=== PATIENT | male | born 1945 | race Caucasian/White ===

== ENCOUNTER 2022-03-30 07:52 | Outpatient (CLI) | payer OTHER, SELFPAY | END 2022-03-30 07:53 | disposition home or self-care (01) | LOC: WOUND 07:52 | PROVIDERS: PCP Surgery; Visit Provider Nurse Practitioner Family | DX: S81.802A Unspecified open wound, left lower leg, initial encounter (principal); L08.9 Local infection of the skin and subcutaneous tissue, unspecified | CPT/HCPCS: 11042 ==

== ENCOUNTER 2022-04-13 08:11 | Outpatient (CLI) | payer OTHER, SELFPAY | END 2022-04-13 08:12 | disposition home or self-care (01) | LOC: WOUND 08:12 | PROVIDERS: PCP Surgery; Visit Provider Nurse Practitioner Family | DX: S81.802A Unspecified open wound, left lower leg, initial encounter (principal); L08.9 Local infection of the skin and subcutaneous tissue, unspecified | CPT/HCPCS: 11042 ==

== ENCOUNTER 2022-04-13 08:40 | Outpatient (CLI) | payer OTHER, SELFPAY | END 2022-04-13 08:41 | disposition home or self-care (01) | LOC: LAB 16:33 | PROVIDERS: PCP Surgery; Visit Provider Nurse Practitioner Family | DX: S81.002A Unspecified open wound, left knee, initial encounter (principal) | CPT/HCPCS: 87070; 87186 ==

== ENCOUNTER 2022-04-20 08:09 | Outpatient (CLI) | payer OTHER, SELFPAY | END 2022-04-20 08:10 | disposition home or self-care (01) | LOC: WOUND 08:09 | PROVIDERS: PCP Surgery; Visit Provider Nurse Practitioner Family | DX: S81.802A Unspecified open wound, left lower leg, initial encounter (principal); L08.9 Local infection of the skin and subcutaneous tissue, unspecified; B95.61 Methicillin susceptible Staphylococcus aureus infection as the cause of diseases classified elsewhere | CPT/HCPCS: 11042 ==

== ENCOUNTER 2022-04-27 08:12 | Outpatient (CLI) | payer OTHER, SELFPAY | END 2022-04-27 08:13 | disposition home or self-care (01) | LOC: WOUND 08:13 | PROVIDERS: PCP Surgery; Visit Provider Nurse Practitioner Family | DX: S81.802A Unspecified open wound, left lower leg, initial encounter (principal); L08.9 Local infection of the skin and subcutaneous tissue, unspecified | CPT/HCPCS: 11042 ==

== ENCOUNTER 2022-05-04 11:03 | Outpatient (CLI) | payer OTHER, SELFPAY | END 2022-05-04 11:04 | disposition home or self-care (01) | LOC: WOUND 11:03 | PROVIDERS: PCP Surgery; Visit Provider Nurse Practitioner Family | DX: L08.9 Local infection of the skin and subcutaneous tissue, unspecified (principal); S81.802A Unspecified open wound, left lower leg, initial encounter | CPT/HCPCS: 11042 ==

== ENCOUNTER 2022-05-11 08:00 | Outpatient (CLI) | payer OTHER, SELFPAY | END 2022-05-11 08:01 | disposition home or self-care (01) | LOC: WOUND 08:01 | PROVIDERS: PCP Surgery; Visit Provider Nurse Practitioner Family | DX: L08.9 Local infection of the skin and subcutaneous tissue, unspecified (principal); S81.802A Unspecified open wound, left lower leg, initial encounter | CPT/HCPCS: 11042 ==

== ENCOUNTER 2022-05-18 08:13 | Outpatient (CLI) | payer OTHER, SELFPAY | END 2022-05-18 08:14 | disposition home or self-care (01) | LOC: WOUND 08:13 | PROVIDERS: PCP Surgery; Visit Provider Nurse Practitioner Family | DX: S81.802A Unspecified open wound, left lower leg, initial encounter (principal); L08.9 Local infection of the skin and subcutaneous tissue, unspecified | CPT/HCPCS: 11042 ==

== ENCOUNTER 2022-06-01 08:06 | Outpatient (CLI) | payer OTHER, SELFPAY | END 2022-06-01 08:07 | disposition home or self-care (01) | LOC: WOUND 08:06 | PROVIDERS: PCP Surgery; Visit Provider Nurse Practitioner Family | DX: S81.802A Unspecified open wound, left lower leg, initial encounter (principal) | CPT/HCPCS: 11042 ==

== ENCOUNTER 2022-06-06 16:21 | Emergency (ER) | payer OTHER, SELFPAY ==
[2022-06-06 16:53] VITALS: BP 143/85; PULSE 65; RESP 18; TEMP 36.4; O2SAT 96
[2022-06-06] MEDS: KETOROLAC 30 MG/ML inj 60 MG IM (17:39)
--- NOTE | 2022-06-06 17:43 | ED.GENADULT ---
HPI - General Adult General Chief complaint: Back Injury/Pain Stated complaint: Back Pain Time Seen by Provider: 06/06/22 16:35 Source: patient Mode of arrival: ambulatory Limitations: no limitations History of Present Illness HPI narrative: Patient is a 76-year-old male coming in today complaining of left-sided low back pain. It is felt a little uncomfortable for several days and then today he got out of the shower grab this towel in twisted and he had sharp immediate pain in the left lower back. The pain does not radiate upper down his back. Does not radiate down into his legs or groin area. He has no difficulty with urination or bowel movements. He denies any nausea or vomiting. No fevers or chills. He denies pain in any other joint. He denies pain in the center of his back. All movement makes it worse. When he is lying down on his recliner he does seem to find a comfortable position. This did happen to him once many years ago. Related Data Home Medications Medication Instructions Recorded Confirmed No Known Home Medications 06/06/22 06/06/22 Allergies Allergy/AdvReac Type Severity Reaction Status Date / Time No Known Drug Allergies Allergy Verified 06/06/22 16:57 Review of Systems Status of ROS: Reports: 10 or more systems reviewed and unremarkable except as noted in History and below [facility] Medical History Open wound of left knee Exam Narrative: Exam Narrative: Well-nourished well-developed patient in no acute distress but appears physically uncomfortable. Alert and oriented. Answers questions appropriately. Mood and affect are appropriate. Thoughts are goal oriented and rational. No tangential or magical thinking noted. Patient speaks in full sentences without needing to catch his breath. Speech is not slurred or pressured. HEENT: Normocephalic atraumatic. Pupils are equally round reactive to light. Extraocular muscles are intact. Conjunctivae are moist without any icterus noted. Abdomen: Soft and nontender nondistended with normal bowel sounds. Extremities: Bilateral lower extremities are without edema. Skin: Well perfused without any obvious rashes. Back: Normal appearance. No tenderness to palpation over the cervical, thoracic, or lumbar spine. He has some tenderness over the paraspinal musculature on the left lumbar region. Strength is 5/5 of the lower extremities. His gait is normal he just appears uncomfortable. There is no footdrop or neurologic deficits noted. He has no CVA tenderness. Const: Vital Signs, click to edit/add: Vital Signs - 24 hr 06/06/22 16:53 Temperature 97.6 F Pulse Rate [Right Pulse Oximeter] 65 Respiratory Rate 18 Blood Pressure [Ri ght Upper Arm] 143/85 H Pulse Oximetry 96 Oxygen Delivery Me thod Room Air Course Vital Signs Vital signs: Initial Vital Signs Temperature 97.6 F 06/06/22 16:53 Temperature Source Temporal Artery Scan 06/06/22 16:53 Pulse Rate 65 06/06/22 16:53 Respiratory Rate 18 06/06/22 16:53 Blood Pressure 143/85 H 06/06/22 16:53 Blood Pressure Mean 104 06/06/22 16:53 Blood Pressure Position Standing 06/06/22 16:53 Pulse Oximetry 96 06/06/22 16:53 Oxygen Delivery Method 06/06/22 16:53 Vital Signs Temperature 97.6 F 06/06/22 16:53 Pulse Rate 65 06/06/22 16:53 Respiratory Rate 18 06/06/22 16:53 Blood Pressure 143/85 H 06/06/22 16:53 Pulse Oximetry 96 06/06/22 16:53 Oxygen Delivery Method 06/06/22 16:53 Temperature 97.6 F 06/06/22 16:53 Pulse Rate 65 06/06/22 16:53 Respiratory Rate 18 06/06/22 16:53 Blood Pressure 143/85 H 06/06/22 16:53 Pulse Oximetry 96 06/06/22 16:53 Oxygen Delivery Method 06/06/22 16:53 Medical Decision Making MDM Narrative Medical decision making narrative: 76-year-old male with acute lumbar strain. Patient given a dose of IM Toradol in the ER today. We discussed symptomatic treatment with gentle stretching, heat, ibuprofen. We discussed reasons to return to the ED. Patient was comfortable with everything we discussed had no other questions. Do recommend he return if he develops difficulty with urination, blood in his urine, vomiting or fever. Discharge Plan Discharge Clinical Impression: Strain of lumbar region Patient Disposition: Home, Self-Care Condition: Stable Additional Instructions: Okay to use ibuprofen 800 mg every 8 hours with food as needed. Okay to use a heating pad to the back when relaxing, do not apply heat directly to skin. Move slowly but frequently throughout the day to keep the muscles warm. Return to the ER if you develop any fever, vomiting or worsening pain. Expect pain to last a few days before it starts to get better. Prescriptions: No Action No Known Home Medications Follow Up/Referrals: Israel Alvarado MD [Primary Care Provider] - Stand Alone Forms: [employer] Info Instructions
[2022-06-06 17:51] VITALS: BP 127/93; PULSE 72; O2SAT 96
== END 2022-06-06 17:52 | disposition home or self-care (01) ==
PROVIDERS: Emergency Provider Family Medicine; PCP Surgery
DX: S39.012A Strain of muscle, fascia and tendon of lower back, initial encounter (principal)
CPT/HCPCS: 96372; 99283; 99284; J1885

== ENCOUNTER 2022-06-15 08:09 | Outpatient (CLI) | payer OTHER, SELFPAY | END 2022-06-15 08:10 | disposition home or self-care (01) | LOC: WOUND 08:09 | PROVIDERS: PCP Surgery; Visit Provider Nurse Practitioner Family | DX: L08.9 Local infection of the skin and subcutaneous tissue, unspecified (principal) | CPT/HCPCS: 11042 ==

== ENCOUNTER 2022-07-13 07:51 | Outpatient (CLI) | payer OTHER, SELFPAY ==
--- NOTE | 2022-07-13 09:30 | CRLHL7_ITS ---
For Patients: As a result of the Cures Act, medical imaging exams and procedure reports are released immediately into your electronic medical record. You may view this report before your referring provider. If you have questions, please contact your health care provider. Indication: Left knee pain. Technique: Three views. Comparison: Radiograph 04/08/[address] 12/10/2021. Findings/Impression: No acute fracture or dislocation. Knee joint effusion. Severe tricompartmental osteoarthritis. Linear oval lucency in the patella which may be from incompletely united fracture, chronic or prior osteomyelitis, and/or surgical graft harvest site. Dictated by Narendra Sy MD @ 07/13/2022 9:26:40 AM (Electronically Signed)
== END 2022-07-13 07:52 | disposition home or self-care (01) ==
PROVIDERS: PCP Surgery; Visit Provider Orthopaedic Surgery
DX: S81.802A Unspecified open wound, left lower leg, initial encounter (principal); Z48.02 Encounter for removal of sutures
CPT/HCPCS: 73564; 99213

== ENCOUNTER 2022-07-19 14:50 | Outpatient (CLI) | payer OTHER, SELFPAY | END 2022-07-19 14:51 | disposition home or self-care (01) | LOC: WOUND 14:51 | PROVIDERS: PCP Surgery; Visit Provider Nurse Practitioner Family | DX: S81.802A Unspecified open wound, left lower leg, initial encounter (principal); L03.116 Cellulitis of left lower limb | CPT/HCPCS: 96372; 99213; J0696 ==

== ENCOUNTER 2022-07-27 08:11 | Outpatient (CLI) | payer OTHER, SELFPAY | END 2022-07-27 08:12 | disposition home or self-care (01) | LOC: WOUND 08:11 | PROVIDERS: PCP Surgery; Visit Provider Nurse Practitioner Family | DX: S81.802A Unspecified open wound, left lower leg, initial encounter (principal); L03.116 Cellulitis of left lower limb; T81.32XA Disruption of internal operation (surgical) wound, not elsewhere classified, initial encounter | CPT/HCPCS: 97597 ==

== ENCOUNTER 2022-08-10 08:02 | Outpatient (CLI) | payer OTHER, SELFPAY | END 2022-08-10 08:03 | disposition home or self-care (01) | LOC: WOUND 08:02 | PROVIDERS: PCP Surgery; Visit Provider Nurse Practitioner Family | DX: L03.116 Cellulitis of left lower limb (principal); T81.31XA Disruption of external operation (surgical) wound, not elsewhere classified, initial encounter | CPT/HCPCS: 87070; 87186; 97602; 99212 ==

== ENCOUNTER 2022-08-24 08:12 | Outpatient (CLI) | payer OTHER, SELFPAY | END 2022-08-24 08:13 | disposition home or self-care (01) | LOC: WOUND 08:13 | PROVIDERS: PCP Surgery; Visit Provider Nurse Practitioner Family | DX: T81.31XA Disruption of external operation (surgical) wound, not elsewhere classified, initial encounter (principal) | CPT/HCPCS: 97597 ==

== ENCOUNTER 2022-08-27 10:21 | Outpatient (CLI) | payer OTHER, SELFPAY | END 2022-08-27 10:22 | disposition home or self-care (01) | LOC: WOUND 09-15 15:22 | PROVIDERS: PCP Surgery; Visit Provider Nurse Practitioner Family | DX: S81.802A Unspecified open wound, left lower leg, initial encounter (principal) | CPT/HCPCS: 99212 ==

== ENCOUNTER 2022-09-07 08:06 | Outpatient (CLI) | payer OTHER, SELFPAY | END 2022-09-07 08:07 | disposition home or self-care (01) | LOC: WOUND 08:07 | PROVIDERS: PCP Surgery; Visit Provider Nurse Practitioner Family | DX: T81.31XA Disruption of external operation (surgical) wound, not elsewhere classified, initial encounter (principal) | CPT/HCPCS: 11042 ==

== ENCOUNTER 2022-09-23 14:39 | Outpatient (CLI) | payer OTHER, SELFPAY | END 2022-09-23 14:40 | disposition home or self-care (01) | LOC: WOUND 14:39 | PROVIDERS: PCP Surgery; Visit Provider Nurse Practitioner Family | DX: T81.31XA Disruption of external operation (surgical) wound, not elsewhere classified, initial encounter (principal) | CPT/HCPCS: 87070; 87186; 97597 ==

== ENCOUNTER 2022-09-27 10:55 | Outpatient (CLI) | payer OTHER, SELFPAY | END 2022-09-27 10:56 | disposition home or self-care (01) | LOC: WOUND 10:55 | PROVIDERS: PCP Surgery; Visit Provider Nurse Practitioner Family | DX: T81.31XA Disruption of external operation (surgical) wound, not elsewhere classified, initial encounter (principal) | CPT/HCPCS: 97597 ==

== ENCOUNTER 2022-09-29 10:52 | Outpatient (CLI) | payer OTHER, SELFPAY | END 2022-09-29 10:53 | disposition home or self-care (01) | LOC: WOUND 10:52 | PROVIDERS: PCP Surgery; Visit Provider Nurse Practitioner Family | DX: S81.802A Unspecified open wound, left lower leg, initial encounter (principal); T81.31XA Disruption of external operation (surgical) wound, not elsewhere classified, initial encounter | CPT/HCPCS: 97597 ==

== ENCOUNTER 2022-10-01 12:54 | Outpatient (CLI) | payer OTHER, SELFPAY | END 2022-10-01 12:55 | disposition home or self-care (01) | PROVIDERS: PCP Surgery; Visit Provider Nurse Practitioner Family | DX: T81.31XA Disruption of external operation (surgical) wound, not elsewhere classified, initial encounter (principal) | CPT/HCPCS: 97597 ==

== ENCOUNTER 2022-10-05 08:14 | Outpatient (CLI) | payer OTHER, SELFPAY | END 2022-10-05 08:15 | disposition home or self-care (01) | LOC: WOUND 08:14 | PROVIDERS: PCP Surgery; Visit Provider Nurse Practitioner Family | DX: T81.31XA Disruption of external operation (surgical) wound, not elsewhere classified, initial encounter (principal) | CPT/HCPCS: 97597 ==

== ENCOUNTER 2022-10-08 14:29 | Outpatient (CLI) | payer OTHER, SELFPAY | END 2022-10-08 14:30 | disposition home or self-care (01) | LOC: WOUND 14:29 | PROVIDERS: PCP Surgery; Visit Provider Nurse Practitioner Family | DX: S81.802A Unspecified open wound, left lower leg, initial encounter (principal) | CPT/HCPCS: 99213 ==

== ENCOUNTER 2022-10-12 08:16 | Outpatient (CLI) | payer OTHER, SELFPAY | END 2022-10-12 08:17 | disposition home or self-care (01) | LOC: WOUND 08:16 | PROVIDERS: PCP Surgery; Visit Provider Nurse Practitioner Family | DX: T81.31XA Disruption of external operation (surgical) wound, not elsewhere classified, initial encounter (principal); S81.802A Unspecified open wound, left lower leg, initial encounter | CPT/HCPCS: 97597 ==

== ENCOUNTER 2022-10-19 14:43 | Outpatient (CLI) | payer OTHER, SELFPAY | END 2022-10-19 14:44 | disposition home or self-care (01) | LOC: WOUND 14:43 | PROVIDERS: PCP Surgery; Visit Provider Nurse Practitioner Family | DX: T81.31XA Disruption of external operation (surgical) wound, not elsewhere classified, initial encounter (principal) | CPT/HCPCS: 99212 ==

== ENCOUNTER 2022-11-02 14:55 | Outpatient (CLI) | payer OTHER, SELFPAY | END 2022-11-02 14:56 | disposition home or self-care (01) | LOC: WOUND 14:55 | PROVIDERS: PCP Surgery; Visit Provider Nurse Practitioner Family | DX: T81.31XA Disruption of external operation (surgical) wound, not elsewhere classified, initial encounter (principal) | CPT/HCPCS: 11042 ==

== ENCOUNTER 2022-11-09 10:27 | Outpatient (CLI) | payer OTHER, SELFPAY | END 2022-11-09 10:28 | disposition home or self-care (01) | LOC: WOUND 10:27 | PROVIDERS: PCP Surgery; Visit Provider Nurse Practitioner Family | DX: T81.31XA Disruption of external operation (surgical) wound, not elsewhere classified, initial encounter (principal) | CPT/HCPCS: 97597 ==

== ENCOUNTER 2022-11-16 15:27 | Outpatient (CLI) | payer OTHER, SELFPAY | END 2022-11-16 15:28 | disposition home or self-care (01) | LOC: WOUND 15:27 | PROVIDERS: PCP Surgery; Visit Provider Nurse Practitioner Family | DX: T81.31XA Disruption of external operation (surgical) wound, not elsewhere classified, initial encounter (principal) | CPT/HCPCS: 11042 ==

== ENCOUNTER 2022-12-22 19:10 | Outpatient (CLI) | payer OTHER, SELFPAY | END 2022-12-22 19:11 | disposition home or self-care (01) | PROVIDERS: PCP Surgery; Visit Provider Family Medicine | DX: R55 Syncope and collapse (principal) | CPT/HCPCS: A0425; A0427 ==

== ENCOUNTER 2022-12-22 19:21 | Observation (INO) | payer OTHER, SELFPAY ==
[2022-12-22] VITALS (44 sets, daily range): BP systolic 111–136; BP diastolic 68–113; PULSE 58–78; RESP 18–20; TEMP 35.8–36.6; O2SAT 93–99; BMI 27.7; BMI 27.8
--- NOTE | 2022-12-22 19:25 | ED_ITS ---
HPI - General Adult General Time Seen by Provider: 19:20 Date Seen: 12/22/22 Chief complaint: Syncope/Fainted Stated complaint: STEMI Time Seen by Provider: 12/22/22 19:23 Source: patient and EMS Mode of arrival: ambulatory Limitations: no limitations History of Present Illness HPI narrative: 77-year-old male who presents today with near syncope and nausea. Patient was having dinner about 30 minutes prior to arrival in the emergency department, says he became lightheaded and nauseated, also diaphoretic. Had a syncopal episode per family and EMS, EMS was called. EKG per EMS report was concerning for ST-elevation and so patient was brought in to the emergency department as a STEMI alert. Currently he is feeling better. Was noted to be hypotensive per EMS on initial arrival. Patient denies chest pain. Recently had a patella surgery at [place] about a month ago, has been off blood thinners for couple of days. Related Data Home Medications Medication Instructions Recorded Confirmed No Known Home Medications 06/06/22 06/06/22 Allergies Allergy/AdvReac Type Severity Reaction Status Date / Time No Known Drug Allergies Allergy Verified 06/06/22 16:57 [facility] Medical History Open wound of left knee Social History Smoking Status: Never smoker Do you use any of these nicotine containing products: None Second hand tobacco smoke exposure: No How often do you have a drink containing alcohol: 2-3 times a week How many standard drinks containing alcohol do you have on a typical day: 1 or 2 How often do you have six or more drinks on one occasion: Never AUDIT-C Alcohol total score: 3 Non-prescribed substance use: denies use service: No Exam 2 Narrative: Exam Narrative: General: Well-developed and well-nourished, no acute distress Head: Atraumatic and normocephalic Eyes: Pupils are equal reactive, extraocular motions intact, conjunctiva clear ENT: External nose and ears are normal, posterior pharynx without erythema or exudate Neck: No midline cervical tenderness, full spontaneous range of motion the neck, trachea midline, no adenopathy Heart: Regular rate and rhythm no murmurs or thrills Lungs: Clear to auscultation bilaterally without wheezes or crackles Abdomen: Soft, nontender, nondistended with active bowel sounds Musculoskeletal: Left knee swelling, incision is clean dry and intact Neurologic: Awake, alert, and oriented x3, no gross focal neurologic deficits, cranial nerves intact as tested Psych: Mood and affect are appropriate Skin: No rashes Const: Vital Signs, click to edit/add: Vital Signs - 24 hr 12/22/22 19:34 12/22/22 19:25 12/22/22 19:27 Temperature 96.5 F L Pulse Rate 64 69 Pulse Rate [orthos tatic lying] Pulse Rate [orthos tatic sitting] Pulse Rate [orthos tatic standing] Respiratory Rate 18 Blood Pressure 129/76 115/76 Blood Pressure [Le ft Upper Arm] 129/76 Blood Pressure [or thostatic lying] Blood Pressure [or thostatic sitting] Blood Pressure [or thostatic standing ] Pulse Oximetry 98 [address] [facility] 12/22/22 19:28 12/22/22 19:30 12/22/22 19:32 Temperature Pulse Rate 67 60 60 Pulse Rate [orthos tatic lying] Pulse Rate [orthos tatic sitting] Pulse Rate [orthos tatic standing] Respiratory Rate Blood Pressure 117/77 Blood Pressure [Le ft Upper Arm] Blood Pressure [or thostatic lying] Blood Pressure [or thostatic sitting] Blood Pressure [or thostatic standing ] Pulse Oximetry 98 [address] [facility] 12/22/22 19:35 12/22/22 19:37 12/22/22 19:40 Temperature Pulse Rate 58 L 61 58 L Pulse Rate [orthos tatic lying] Pulse Rate [orthos tatic sitting] Pulse Rate [orthos tatic standing] Respiratory Rate Blood Pressure 116/72 Blood Pressure [Le ft Upper Arm] Blood Pressure [or thostatic lying] Blood Pressure [or thostatic sitting] Blood Pressure [or thostatic standing ] Pulse Oximetry 96 95 98 Oxygen Delivery Me od 12/22/22 19:42 12/22/22 19:45 12/22/22 19:47 Temperature Pulse Rate 63 62 64 Pulse Rate [orthos tatic lying] Pulse Rate [orthos tatic sitting] Pulse Rate [orthos tatic standing] Respiratory Rate Blood Pressure 119/68 117/74 Blood Pressure [Le ft Upper Arm] Blood Pressure [or thostatic lying] Blood Pressure [or thostatic sitting] Blood Pressure [or thostatic standing ] Pulse Oximetry 95 96 97 Oxygen Delivery Me thod 12/22/22 19:48 12/22/22 19:50 12/22/22 19:52 Temperature Pulse Rate 59 L 63 61 Pulse Rate [orthos tatic lying] Pulse Rate [orthos tatic sitting] Pulse Rate [orthos tatic standing] Respiratory Rate Blood Pressure 113/77 Blood Pressure [Le ft Upper Arm] Blood Pressure [or thostatic lying] Blood Pressure [or thostatic sitting] Blood Pressure [or thostatic standing ] Pulse Oximetry 97 98 97 Oxygen Delivery Me thod 12/22/22 19:55 12/22/22 20:00 12/22/22 20:02 Temperature Pulse Rate 63 61 62 Pulse Rate [orthos tatic lying] Pulse Rate [orthos tatic sitting] Pulse Rate [orthos tatic standing] Respiratory Rate Blood Pressure 120/71 Blood Pressure [Le ft Upper Arm] Blood Pressure [or thostatic lying] Blood Pressure [or thostatic sitting] Blood Pressure [or thostatic standing ] Pulse Oximetry 97 97 96 Oxygen Delivery Me thod 12/22/22 20:05 12/22/22 20:10 12/22/22 20:46 Temperature Pulse Rate 64 60 Pulse Rate [orthos tatic lying] 67 Pulse Rate [orthos tatic sitting] 75 Pulse Rate [orthos tatic standing] 74 Respiratory Rate Blood Pressure Blood Pressure [Le ft Upper Arm] Blood Pressure [or thostatic lying] 133/77 Blood Pressure [or thostatic sitting] 134/76 Blood Pressure [or thostatic standing ] 126/77 Pulse Oximetry 96 96 Oxygen Delivery Me thod 12/22/22 20:26 12/22/22 20:30 12/22/22 20:32 Temperature Pulse Rate 64 67 64 Pulse Rate [orthos tatic lying] Pulse Rate [orthos tatic sitting] Pulse Rate [orthos tatic standing] Respiratory Rate Blood Pressure 133/75 Blood Pressure [Le ft Upper Arm] Blood Pressure [or thostatic lying] Blood Pressure [or thostatic sitting] Blood Pressure [or thostatic standing ] Pulse Oximetry 98 97 97 Oxygen Delivery Me thod 12/22/22 20:40 12/22/22 20:41 12/22/22 20:44 Temperature Pulse Rate 75 62 70 Pulse Rate [orthos tatic lying] Pulse Rate [orthos tatic sitting] Pulse Rate [orthos tatic standing] Respiratory Rate Blood Pressure 133/77 134/76 126/77 Blood Pressure [Le ft Upper Arm] Blood Pressure [or thostatic lying] Blood Pressure [or thostatic sitting] Blood Pressure [or thostatic standing ] Pulse Oximetry 99 98 93 Oxygen Delivery Me thod 12/22/22 20:45 12/22/22 20:47 12/22/22 21:00 Temperature Pulse Rate 68 69 66 Pulse Rate [orthos tatic lying] Pulse Rate [orthos tatic sitting] Pulse Rate [orthos tatic standing] Respiratory Rate Blood Pressure 136/81 Blood Pressure [Le ft Upper Arm] Blood Pressure [or thostatic lying] Blood Pressure [or thostatic sitting] Blood Pressure [or thostatic standing ] Pulse Oximetry 98 99 98 Oxygen Delivery Me thod 12/22/22 21:02 12/22/22 21:15 12/22/22 21:17 Temperature Pulse Rate 65 66 66 Pulse Rate [orthos tatic lying] Pulse Rate [orthos tatic sitting] Pulse Rate [orthos tatic standing] Respiratory Rate Blood Pressure 127/69 132/74 Blood Pressure [Le ft Upper Arm] Blood Pressure [or thostatic lying] Blood Pressure [or thostatic sitting] Blood Pressure [or thostatic standing ] Pulse Oximetry 97 96 97 Oxygen Delivery Me thod 12/22/22 21:18 12/22/22 21:30 12/22/22 21:32 Temperature Pulse Rate 67 67 68 Pulse Rate [orthos tatic lying] Pulse Rate [orthos tatic sitting] Pulse Rate [orthos tatic standing] Respiratory Rate Blood Pressure 120/76 Blood Pressure [Le ft Upper Arm] Blood Pressure [or thostatic lying] Blood Pressure [or thostatic sitting] Blood Pressure [or thostatic standing ] Pulse Oximetry 97 97 96 Oxygen Delivery Me thod 12/22/22 21:45 12/22/22 21:47 Temperature Pulse Rate 69 75 Pulse Rate [orthos tatic lying] Pulse Rate [orthos tatic sitting] Pulse Rate [orthos tatic standing] Respiratory Rate Blood Pressure 125/71 Blood Pressure [Le ft Upper Arm] Blood Pressure [or thostatic lying] Blood Pressure [or thostatic sitting] Blood Pressure [or thostatic standing ] Pulse Oximetry 98 97 Oxygen Delivery Me thod Course Course Hospital Course: Patient seen examined, prior records are reviewed. Differential diagnosis includes but not limited to acute coronary syndrome, dysrhythmia, electrolyte disturbance, pulmonary embolism, sepsis. Patient presents with abrupt onset nausea, diaphoresis, lightheadedness and a syncopal episode. Initial EKG demonstrates bradycardia but no other acute findings. Patient has pacemaker that has been turned off the last couple of years. He had no chest pain with this. I did review EKGs from EMS which showed no acute elevations or reciprocal changes. Labs are ordered including D-dimer, consider PE study given syncopal episode recent surgery Reevaluation(s) Reevaluation #1: Labs independently interpreted by me did demonstrate normal CBC with normal hemoglobin, troponin is 0.01 and lactate is normal. Remaining labs and CT are pending. Patient remains finally stable in the emergency department. I did review a prior EKG from April 2021 which appears the same as EKG done today. Time: 20:02 Reevaluation #2: Labs independently interpreted by me demonstrate reassuring basic panel, glucose slightly elevated consistent with patient eating at the time of his syncopal event. D-dimer slightly elevated, CT PE protocol was already ordered, and is independently interpreted by me with no evidence for acute pulmonary embolism or other intrathoracic pathology. Time: 20:28 Reevaluation #3: Repeat troponin is negative, radiology interpretation of CT scan agrees with my initial interpretation. Care discussed with Dr. Echeverria, hospitalist in the emergency department. Patient will be observed overnight for syncopal episode and patient with history of dysrhythmia. Time: 22:12 Vital Signs Vital signs: Initial Vital Signs Pulse Rate 64 12/22/22 19:25 Blood Pressure 129/76 12/22/22 19:25 Blood Pressure Mean 93 12/22/22 19:25 Pulse Oximetry 96 12/22/22 19:25 Vital Signs Pulse Rate 64 12/22/22 19:25 Blood Pressure 129/76 12/22/22 19:25 Pulse Oximetry 96 12/22/22 19:25 Temperature 96.5 F L 12/22/22 19:34 Pulse Rate 75 12/22/22 21:47 Respiratory Rate 18 12/22/22 19:34 Blood Pressure 125/71 12/22/22 21:47 Pulse Oximetry 97 12/22/22 21:47 Oxygen Delivery Method Room Air 12/22/22 19:34 Medical Decision Making Lab Data Labs: Lab Results 12/22/22 12/22/22 12/22/22 Range/Units 19:23 19:23 19:23 WBC 5.81 (4.50-11.00) K/uL RBC 5.19 (4.30-5.90) m/uL Hgb 14.3 (13.5-17.5) gm/dL Hct 43.1 (37.0-53.0) % MCV 83 (80-100) fL MCH 28 (26-34) pg MCHC 33 (32-36) gm/dL RDW Coeff of [place] 13.9 (11.5-15.5) % Plt Count 183 (140-440) K/uL Neut % (Auto) 56.1 (42.0-72.0) % Lymph % (Auto) 26.5 (20-44) % [place] % (Auto) 8.6 (0.0-11.0) % Eos % (Auto) 7.9 H (0.0-7.0) % Baso % (Auto) 0.9 (0.0-3.0) % Neut # (Auto) 3.26 (1.7-7.0) K/uL Lymph # (Auto) 1.54 (0.90-2.90) K/uL [place] # (Auto) 0.50 (0.00-0.90) K/UL Eos # (Auto) 0.50 (0.00-0.50) K/uL Baso # (Auto) 0.05 (0.00-0.30) K/uL D-Dimer Quant (PE/DVT) 0.89 H (0.00-0.50) ug/ml Sodium Cancelled 136 Potassium Cancelled 3.9 Chloride Cancelled Carbon Dioxide BUN Creatinine Estimated Creat Clear Estimated GFR Glucose Lactate (0.5-1.9) mmol/L Calcium Total Bilirubin (0.1-1.5) mg/dL Direct Bilirubin (0.0-0.5) mg/dL AST (12-35) U/L ALT (4-50) U/L Alkaline Phosphatase (40-150) U/L Total Protein (6.0-8.3) g/dL Albumin (3.3-5.0) g/dL Lipase (23-300) U/L SARS-CoV-2 (PCR) (Negative) POC Troponin I (0.01-0.04) ng/ml 12/22/22 12/22/22 12/22/22 Range/Units 19:23 19:23 19:23 WBC (4.50-11.00) K/uL RBC (4.30-5.90) m/uL Hgb (13.5-17.5) gm/dL Hct (37.0-53.0) % MCV (80-100) fL MCH (26-34) pg MCHC (32-36) gm/dL RDW Coeff of Yareli (11.5-15.5) % Plt Count (140-440) K/uL Neut % (Auto) (42.0-72.0) % Lymph % (Auto) (20-44) % [place] % (Auto) (0.0-11.0) % Eos % (Auto) (0.0-7.0) % Baso % (Auto) (0.0-3.0) % Neut # (Auto) (1.7-7.0) K/uL Lymph # (Auto) (0.90-2.90) K/uL [place] # (Auto) (0.00-0.90) K/UL Eos # (Auto) (0.00-0.50) K/uL Baso # (Auto) (0.00-0.30) K/uL D-Dimer Quant (PE/DVT) (0.00-0.50) ug/ml Sodium Potassium Chloride 104 Carbon Dioxide Cancelled 23 BUN Cancelled 23 Creatinine Cancelled Estimated Creat Clear Estimated GFR Glucose Lactate (0.5-1.9) mmol/L Calcium Total Bilirubin (0.1-1.5) mg/dL Direct Bilirubin (0.0-0.5) mg/dL AST (12-35) U/L ALT (4-50) U/L Alkaline Phosphatase (40-150) U/L Total Protein (6.0-8.3) g/dL Albumin (3.3-5.0) g/dL Lipase (23-300) U/L SARS-CoV-2 (PCR) (Negative) POC Troponin I (0.01-0.04) ng/ml 12/22/22 12/22/22 12/22/22 Range/Units 19:23 19:23 19:23 WBC (4.50-11.00) K/uL RBC (4.30-5.90) m/uL Hgb (13.5-17.5) gm/dL Hct (37.0-53.0) % MCV (80-100) fL MCH (26-34) pg MCHC (32-36) gm/dL RDW Coeff of Yareli (11.5-15.5) % Plt Count (140-440) K/uL Neut % (Auto) (42.0-72.0) % Lymph % (Auto) (20-44) % [place] % (Auto) (0.0-11.0) % Eos % (Auto) (0.0-7.0) % Baso % (Auto) (0.0-3.0) % Neut # (Auto) (1.7-7.0) K/uL Lymph # (Auto) (0.90-2.90) K/uL [place] # (Auto) (0.00-0.90) K/UL Eos # (Auto) (0.00-0.50) K/uL Baso # (Auto) (0.00-0.30) K/uL D-Dimer Quant (PE/DVT) (0.00-0.50) ug/ml Sodium Potassium Chloride Carbon Dioxide BUN Creatinine 1.0 Estimated Creat Clear Cancelled 71.02 Estimated GFR Cancelled 78 Glucose Cancelled Lactate (0.5-1.9) mmol/L Calcium Total Bilirubin (0.1-1.5) mg/dL Direct Bilirubin (0.0-0.5) mg/dL AST (12-35) U/L ALT (4-50) U/L Alkaline Phosphatase (40-150) U/L Total Protein (6.0-8.3) g/dL Albumin (3.3-5.0) g/dL Lipase (23-300) U/L SARS-CoV-2 (PCR) (Negative) POC Troponin I (0.01-0.04) ng/ml 12/22/22 12/22/22 12/22/22 Range/Units 19:23 19:23 19:25 WBC (4.50-11.00) K/uL RBC (4.30-5.90) m/uL Hgb (13.5-17.5) gm/dL Hct (37.0-53.0) % MCV (80-100) fL MCH (26-34) pg MCHC (32-36) gm/dL RDW Coeff of Yareli (11.5-15.5) % Plt Count (140-440) K/uL Neut % (Auto) (42.0-72.0) % Lymph % (Auto) (20-44) % [place] % (Auto) (0.0-11.0) % Eos % (Auto) (0.0-7.0) % Baso % (Auto) (0.0-3.0) % Neut # (Auto) (1.7-7.0) K/uL Lymph # (Auto) (0.90-2.90) K/uL [place] # (Auto) (0.00-0.90) K/UL Eos # (Auto) (0.00-0.50) K/uL Baso # (Auto) (0.00-0.30) K/uL D-Dimer Quant (PE/DVT) (0.00-0.50) ug/ml Sodium Potassium Chloride Carbon Dioxide BUN Creatinine Estimated Creat Clear Estimated GFR Glucose 147 H Lactate 1.2 (0.5-1.9) mmol/L Calcium Cancelled 9.0 Total Bilirubin 0.5 (0.1-1.5) mg/dL Direct Bilirubin 0.1 (0.0-0.5) mg/dL AST 25 (12-35) U/L ALT 26 (4-50) U/L Alkaline Phosphatase 77 (40-150) U/L Total Protein 7.3 (6.0-8.3) g/dL Albumin 4.3 (3.3-5.0) g/dL Lipase 60 (23-300) U/L SARS-CoV-2 (PCR) (Negative) POC Troponin I 0.01 (0.01-0.04) ng/ml 12/22/22 12/22/22 Range/Units 20:47 21:38 WBC (4.50-11.00) K/uL RBC (4.30-5.90) m/uL Hgb (13.5-17.5) gm/dL Hct (37.0-53.0) % MCV (80-100) fL MCH (26-34) pg MCHC (32-36) gm/dL RDW Coeff of Yareli (11.5-15.5) % Plt Count (140-440) K/uL Neut % (Auto) (42.0-72.0) % Lymph % (Auto) (20-44) % [place] % (Auto) (0.0-11.0) % Eos % (Auto) (0.0-7.0) % Baso % (Auto) (0.0-3.0) % Neut # (Auto) (1.7-7.0) K/uL Lymph # (Auto) (0.90-2.90) K/uL [place] # (Auto) (0.00-0.90) K/UL Eos # (Auto) (0.00-0.50) K/uL Baso # (Auto) (0.00-0.30) K/uL D-Dimer Quant (PE/DVT) (0.00-0.50) ug/ml Sodium Potassium Chloride Carbon Dioxide BUN Creatinine Estimated Creat Clear Estimated GFR Glucose Lactate (0.5-1.9) mmol/L Calcium Total Bilirubin (0.1-1.5) mg/dL Direct Bilirubin (0.0-0.5) mg/dL AST (12-35) U/L ALT (4-50) U/L Alkaline Phosphatase (40-150) U/L Total Protein (6.0-8.3) g/dL Albumin (3.3-5.0) g/dL Lipase (23-300) U/L SARS-CoV-2 (PCR) Negative SARS-CoV-2 (Negative) POC Troponin I 0.02 (0.01-0.04) ng/ml ECG Data Attestation: I personally reviewed and interpreted this ECG as follows: Prior ECG tracings: not available for review Interpretation: EKG independently interpreted by me performed at 7:20 p.m. demonstrates sinus rhythm rate 58, no acute ST elevations or depressions, normal intervals, normal axis, QTC 406. No prior for comparison. Discharge Plan Discharge Clinical Impression: Syncope Patient Disposition: Admitted As Inpatient
--- NOTE | 2022-12-22 19:29 | CRLHL7_ITS ---
For Patients: As a result of the Century Cures Act, medical imaging exams and procedure reports are released immediately into your electronic medical record. You may view this report before your referring provider. If you have questions, please contact your health care provider. INDICATION: Syncope. Recent surgery. TECHNIQUE : CT scan of the chest. CTA PE protocol. IV contrast. IV contrast: Isovue 370 95 mL Please note that all CT scans at this facility use dose modulation, iterative reconstruction and/or weight-based dosing when appropriate to reduce radiation dose to as low as reasonably achievable(ALARA). COMPARISON : None. FINDINGS: RIVETING MACHINE OPERATOR CT IMAGES: Lungs are grossly clear. Heart and mediastinal contours within normal limits. PULMONARY ARTERIES: No focal pulmonary artery filling defects. THORACIC AORTA: Thoracic aorta is normal in caliber. No dissection. HEART AND MEDIASTINUM: Heart size normal. Calcified coronary artery disease in the LAD. No pathologically enlarged mediastinal lymph nodes. LUNGS AND PLEURA: Calcified granuloma in the left lower lobe. Additional left infrahilar lymph nodes, indicating sequela prior granulomatous disease. No focal airspace consolidation, pleural effusions, or pneumothorax. CHEST WALL AND SOFT TISSUES: Chest wall soft tissues unremarkable. No enlarged axillary lymph nodes. Pacemaker in the anterior left chest wall. THYROID GLAND: Unremarkable. UPPER ABDOMEN: Small hiatal hernia. Splenic calcifications, consistent with prior granulomatous disease. Splenic size is within normal range. Adrenal glands normal. BONES: Unremarkable. IMPRESSION: 1. No acute pulmonary embolism. 2. Lungs clear. 3. Sequela of prior granulomatous disease with calcified left lower lobe pulmonary nodules, calcified left infrahilar lymph nodes, and coarse splenic calcifications. 4. Small hiatal hernia. 5. Calcified coronary artery disease. Dictated by Tommy Coyle MD @ 12/22/2022 9:40:02 PM Please note that all CT scans at this facility use dose modulation, iterative reconstruction, and/or weight-based dosing when appropriate to reduce radiation dose to as low as reasonably achievable. Dictated by: Tommy Coyle MD @ 12/22/2022 21:40:09 (Electronically Signed)
[2022-12-22 19:32] LABS: Lactate* 1.2 mmol/L (0.5-1.9)
[2022-12-22 19:33] LABS: Basophils Absolute Auto 0.05 K/uL (0.00-0.30); Basophils Percent Auto 0.9 % (0.0-3.0); Eosinophils Percent Auto 7.9 % (0.0-7.0); Hematocrit 43.1 % (37.0-53.0); Hemoglobin* 14.3 gm/dL (13.5-17.5); Lymphocytes Absolute Auto 1.54 K/uL (0.90-2.90); Lymphocytes Percent Auto 26.5 % (20-44); Mean Corpuscular HGB Conc 33 gm/dL (32-36); Mean Corpuscular Hemoglobin 28 pg (26-34); Mean Corpuscular Volume 83 fL (80-100); Monocytes Percent Auto 8.6 % (0.0-11.0); Neutrophils Absolute Auto 3.26 K/uL (1.7-7.0); Neutrophils Percent Auto 56.1 % (42.0-72.0); Platelet Count* 183 K/uL (140-440); RDW Coefficient of Variation % 13.9 % (11.5-15.5); Red Blood Count 5.19 m/uL (4.30-5.90); White Blood Count* 5.81 K/uL (4.50-11.00)
[2022-12-22 19:34] LABS: Slide Review Reflex No
[2022-12-22] MEDS: 0.9 % SODIUM CHLORIDE 1000 ml 1,000 ML IV (19:34)
[2022-12-22 19:40] LABS: Troponin, Point-of-Care* 0.01 ng/ml (0.01-0.04)
[2022-12-22 19:59] LABS: Albumin* 4.3 g/dL (3.3-5.0)
[2022-12-22 20:00] LABS: Chloride* 104 mmol/L (96-114); Potassium* 3.9 mmol/L (3.6-5.1); Sodium* 136 mmol/L (135-149)
[2022-12-22 20:02] LABS: Alkaline Phosphatase* 77 U/L (40-150); Aspartate Amino Transferase* 25 U/L (12-35); Bilirubin Direct* 0.1 mg/dL (0.0-0.5); Bilirubin Total* 0.5 mg/dL (0.1-1.5); Blood Urea Nitrogen* 23 mg/dL (7-30); Carbon Dioxide* 23 mmol/L (20-32); Est. Creatinine Clearance* 71.02; Estimated Glomerular Filt Rate 78 ml/min; Glucose* 147 mg/dL (60-115); Total Protein* 7.3 g/dL (6.0-8.3)
[2022-12-22 20:03] LABS: Alanine Aminotransferase* 26 U/L (4-50); D Dimer Quantitative* 0.89 ug/ml (0.00-0.50); Lipase* 60 U/L (23-300)
[2022-12-22 21:56] LABS: SARS PCR* Negative SARS-CoV-2 (Negative)
[2022-12-22 22:06] LABS: Troponin, Point-of-Care* 0.02 ng/ml (0.01-0.04)
--- NOTE | 2022-12-22 22:25 | ED.NURSE ---
Report to [facility] on Med Surg. Patient will go to room 259. Per Hospitalist, ok to remove one PIV.
--- NOTE | 2022-12-22 22:45 | PM.IMHP1 ---
Hospitalist- H&P: HPI History of Present Illness Date Seen: 12/22/22 Chief complaint: Syncope Narrative: Ben Kirkpatrick is a 77 year old male admitted through the emergency department with an episode of syncope. Shortly after eating dinner tonight he began to feel poorly. He reported feeling nausea and diaphoresis. He felt an urge to have a bowel movement. Before he get up and move he lost consciousness. He was in the presence of his who noted that he was out for about 10 or 15 seconds and then after another 15 seconds began to respond to voices. He reports that he was feeling fine while he was eating his meal. He has also been feeling fine during the day today. He currently reports he is feeling fine now in the emergency department. He does have remote history of syncope apparently triggered by circumstances such as getting up too fast or related to surgery. About 25 years ago he had a pacemaker placed. At that time he was having dizzy spells where he felt quite lightheaded. He did not have syncope at that time. The pacemaker was placed but he apparently did not require the pacemaker as by his understanding his heart did not have any demand for it. The pacemaker had 1 of its wires go bad and further evaluation showed that he did seem to need a pacemaker so the pacemaker was shut off. This occurred in 2016. [facility] [address]. Sawyer at [facility]. Since that time he has had no problems with syncope. He is not aware of any other heart disease. He has not had any diagnosis of coronary artery disease or chest pain or unusual exertional dyspnea. Recent past medical history is significant for longstanding problems with his left patella. About a decade ago he had a patellar fracture with ORIF. In the past 2 years he has developed infection in that area. He has had incision and drainage of this and prolonged antibiotics manage through [facility]. 11/18/2022 they removed his left patella. His leg was in a cast until about 10 days ago. He is now walking with crutches with very limited motion in his left knee. He was on antibiotics and anticoagulation and pantoprazole which were all discontinued 2 days ago. Review of Systems Narrative: No recent illness or injury excepted noted above. He had COVID infection February 2022 [facility] Medical History Allergic rhinitis ?J30.9 - Allergic rhinitis, unspecified (ICD-10) DJD (degenerative joint disease), lumbar ?M47.816 - Spondylosis without myelopathy or radiculopathy, lumbar region (ICD-10) Insomnia ?G47.00 - Insomnia, unspecified (ICD-10) Irritable bowel syndrome ?K58.9 - Irritable bowel syndrome without diarrhea (ICD-10) Obstructive sleep apnea ?G47.33 - Obstructive sleep apnea (adult) (pediatric) (ICD-10) Open wound of left knee ?S81.002A - Unspecified open wound, left knee, initial encounter (ICD-10) Surgical History History of Achilles tendon repair ?Z98.890 - Other specified postprocedural states (ICD-10) History of bunionectomy ?Z98.890 - Other specified postprocedural states (ICD-10) History of inguinal hernia repair, bilateral ?Z98.890 - Other specified postprocedural states (ICD-10) ?Z87.19 - Personal history of other diseases of the digestive system (ICD-10) History of knee surgery ?Z98.890 - Other specified postprocedural states (ICD-10) History of permanent cardiac pacemaker placement ?Z95.0 - Presence of cardiac pacemaker (ICD-10) History of vasectomy ?Z98.52 - Vasectomy status (ICD-10) Family History (Updated 12/22/22 @ 22:55 by Ben Echeverria MD) Father Diabetes High blood pressure Social History (Updated 12/22/22 @ 22:56 by Ben Echeverria MD) Narrative: Patient lives with his in [place]. He is a nonsmoker. He drinks alcohol on weekends. He reports having only 1 drink in the last month. Smoking Status: Never smoker Do you use any of these nicotine containing products: None Second hand tobacco smoke exposure: No How often do you have a drink containing alcohol: 2-3 times a week How many standard drinks containing alcohol do you have on a typical day: 1 or 2 How often do you have six or more drinks on one occasion: Never AUDIT-C Alcohol total score: 3 Non-prescribed substance use: denies use service: No Meds Home Medications and Allergies Home Medications Medication Instructions Recorded Confirmed Type No Known Home Medications 06/06/22 06/06/22 History Home Medication Comments: None Allergies Allergy/AdvReac Type Severity Reaction Status Date / Time No Known Drug Allergies Allergy Verified 06/06/22 16:57 Exam Narrative: Exam Narrative: He is alert and appears in no distress. He gives his own history. Head is without trauma. Eyes normal. Extraocular movements are full. Oropharynx is normal. Neck is supple without mass or adenopathy. Respirations are clear to auscultation. Good air exchange all lung arreguin. Cardiovascular: S1, S2, regular rate and rhythm. No murmur gallop or rub. Abdomen: Bowel sounds active. Abdomen is soft without tenderness or mass. External genitalia normal. Upper extremities are normal. Right lower extremity is normal with intact pulses no edema. Left lower extremity is status post knee surgery. The incision is clean and dry and well healed. There is no erythema and no drainage. Palpation shows no significant tenderness or fluid collection in the subcutaneous tissues. His left pedal pulses weak but present. No significant edema. Const: Vital Signs, click to edit/add: Vital Signs - 24 hr 12/22/22 19:34 12/22/22 19:25 12/22/22 19:27 Temperature 96.5 F L Pulse Rate 64 69 Pulse Rate [orthos tatic lying] Pulse Rate [orthos tatic sitting] Pulse Rate [orthos tatic standing] Respiratory Rate 18 Blood Pressure 129/76 115/76 Blood Pressure [Le ft Upper Arm] 129/76 Blood Pressure [or thostatic lying] Blood Pressure [or thostatic sitting] Blood Pressure [or thostatic standing ] Pulse Oximetry 98 96 98 [facility] 12/22/22 19:28 12/22/22 19:30 12/22/22 19:32 Temperature Pulse Rate 67 60 60 Pulse Rate [orthos tatic lying] Pulse Rate [orthos tatic sitting] Pulse Rate [orthos tatic standing] Respiratory Rate Blood Pressure 117/77 Blood Pressure [Le ft Upper Arm] Blood Pressure [or thostatic lying] Blood Pressure [or thostatic sitting] Blood Pressure [or thostatic standing ] Pulse Oximetry 98 98 99 Oxygen Delivery Me thod 12/22/22 19:35 12/22/22 19:37 12/22/22 19:40 Temperature Pulse Rate 58 L 61 58 L Pulse Rate [orthos tatic lying] Pulse Rate [orthos tatic sitting] Pulse Rate [orthos tatic standing] Respiratory Rate Blood Pressure 116/72 Blood Pressure [Le ft Upper Arm] Blood Pressure [or thostatic lying] Blood Pressure [or thostatic sitting] Blood Pressure [or thostatic standing ] Pulse Oximetry 96 95 98 Oxygen Delivery Me thod 12/22/22 19:42 12/22/22 19:45 12/22/22 19:47 Temperature Pulse Rate 63 62 64 Pulse Rate [orthos tatic lying] Pulse Rate [orthos tatic sitting] Pulse Rate [orthos tatic standing] Respiratory Rate Blood Pressure 119/68 117/74 Blood Pressure [Le ft Upper Arm] Blood Pressure [or thostatic lying] Blood Pressure [or thostatic sitting] Blood Pressure [or thostatic standing ] Pulse Oximetry 95 96 97 Oxygen Delivery Me thod 12/22/22 19:48 12/22/22 19:50 12/22/22 19:52 Temperature Pulse Rate 59 L 63 61 Pulse Rate [orthos tatic lying] Pulse Rate [orthos tatic sitting] Pulse Rate [orthos tatic standing] Respiratory Rate Blood Pressure 113/77 Blood Pressure [Le ft Upper Arm] Blood Pressure [or thostatic lying] Blood Pressure [or thostatic sitting] Blood Pressure [or thostatic standing ] Pulse Oximetry 97 98 97 Oxygen Delivery Me thod 12/22/22 19:55 12/22/22 20:00 12/22/22 20:02 Temperature Pulse Rate 63 61 62 Pulse Rate [orthos tatic lying] Pulse Rate [orthos tatic sitting] Pulse Rate [orthos tatic standing] Respiratory Rate Blood Pressure 120/71 Blood Pressure [Le ft Upper Arm] Blood Pressure [or thostatic lying] Blood Pressure [or thostatic sitting] Blood Pressure [or thostatic standing ] Pulse Oximetry 97 97 96 Oxygen Delivery Me thod 12/22/22 20:05 12/22/22 20:10 12/22/22 20:46 Temperature Pulse Rate 64 60 Pulse Rate [orthos tatic lying] 67 Pulse Rate [orthos tatic sitting] 75 Pulse Rate [orthos tatic standing] 74 Respiratory Rate Blood Pressure Blood Pressure [Le ft Upper Arm] Blood Pressure [or thostatic lying] 133/77 Blood Pressure [or thostatic sitting] 134/76 Blood Pressure [or thostatic standing ] 126/77 Pulse Oximetry 96 96 Oxygen Delivery Me thod 12/22/22 20:26 12/22/22 20:30 12/22/22 20:32 Temperature Pulse Rate 64 67 64 Pulse Rate [orthos tatic lying] Pulse Rate [orthos tatic sitting] Pulse Rate [orthos tatic standing] Respiratory Rate Blood Pressure 133/75 Blood Pressure [Le ft Upper Arm] Blood Pressure [or thostatic lying] Blood Pressure [or thostatic sitting] Blood Pressure [or thostatic standing ] Pulse Oximetry 98 97 97 Oxygen Delivery Me thod 12/22/22 20:40 12/22/22 20:41 12/22/22 20:44 Temperature Pulse Rate 75 62 70 Pulse Rate [orthos tatic lying] Pulse Rate [orthos tatic sitting] Pulse Rate [orthos tatic standing] Respiratory Rate Blood Pressure 133/77 134/76 126/77 Blood Pressure [Le ft Upper Arm] Blood Pressure [or thostatic lying] Blood Pressure [or thostatic sitting] Blood Pressure [or thostatic standing ] Pulse Oximetry 99 98 93 Oxygen Delivery Fl thod 12/22/22 20:45 12/22/22 20:47 12/22/22 21:00 Temperature Pulse Rate 68 69 66 Pulse Rate [orthos tatic lying] Pulse Rate [orthos tatic sitting] Pulse Rate [orthos tatic standing] Respiratory Rate Blood Pressure 136/81 Blood Pressure [Le ft Upper Arm] Blood Pressure [or thostatic lying] Blood Pressure [or thostatic sitting] Blood Pressure [or thostatic standing ] Pulse Oximetry 98 99 98 Oxygen Delivery Me thod 12/22/22 21:02 12/22/22 21:15 12/22/22 21:17 Temperature Pulse Rate 65 66 66 Pulse Rate [orthos tatic lying] Pulse Rate [orthos tatic sitting] Pulse Rate [orthos tatic standing] Respiratory Rate Blood Pressure 127/69 132/74 Blood Pressure [Le ft Upper Arm] Blood Pressure [or thostatic lying] Blood Pressure [or thostatic sitting] Blood Pressure [or thostatic standing ] Pulse Oximetry 97 96 97 Oxygen Delivery Me thod 12/22/22 21:18 12/22/22 21:30 12/22/22 21:32 Temperature Pulse Rate 67 67 68 Pulse Rate [orthos tatic lying] Pulse Rate [orthos tatic sitting] Pulse Rate [orthos tatic standing] Respiratory Rate Blood Pressure 120/76 Blood Pressure [Le ft Upper Arm] Blood Pressure [or thostatic lying] Blood Pressure [or thostatic sitting] Blood Pressure [or thostatic standing ] Pulse Oximetry 97 97 96 Oxygen Delivery Me thod 12/22/22 21:45 12/22/22 21:47 12/22/22 21:48 Temperature Pulse Rate 69 75 70 Pulse Rate [orthos tatic lying] Pulse Rate [orthos tatic sitting] Pulse Rate [orthos tatic standing] Respiratory Rate Blood Pressure 125/71 Blood Pressure [Le ft Upper Arm] Blood Pressure [or thostatic lying] Blood Pressure [or thostatic sitting] Blood Pressure [or thostatic standing ] Pulse Oximetry 98 97 97 Oxygen Delivery Fl thod 12/22/22 22:00 12/22/22 22:02 12/22/22 22:15 Temperature Pulse Rate 72 67 74 Pulse Rate [orthos tatic lying] Pulse Rate [orthos tatic sitting] Pulse Rate [orthos tatic standing] Respiratory Rate Blood Pressure 132/70 Blood Pressure [Le ft Upper Arm] Blood Pressure [or thostatic lying] Blood Pressure [or thostatic sitting] Blood Pressure [or thostatic standing ] Pulse Oximetry 98 98 98 [facility] 12/22/22 22:17 Temperature Pulse Rate 74 Pulse Rate [orthos tatic lying] Pulse Rate [orthos tatic sitting] Pulse Rate [orthos tatic standing] Respiratory Rate Blood Pressure 135/113 H Blood Pressure [Le ft Upper Arm] Blood Pressure [or thostatic lying] Blood Pressure [or thostatic sitting] Blood Pressure [or thostatic standing ] Pulse Oximetry 98 Oxygen Delivery Me thod Documenting provider has reviewed patient's vital signs: yes Hospitalist - H&P: Result Labs Labs: Short CBC 12/22/22 Range/Units 19:23 WBC 5.81 (4.50-11.00) K/uL Hgb 14.3 (13.5-17.5) gm/dL Hct 43.1 (37.0-53.0) % Plt Count 183 (140-440) K/uL BMP 12/22/22 12/22/22 12/22/22 19:23 19:23 19:23 Sodium Cancelled 136 Potassium Cancelled 3.9 Chloride Cancelled Carbon Dioxide BUN Creatinine Glucose Calcium 12/22/22 12/22/22 12/22/22 19:23 19:23 19:23 Sodium Potassium Chloride 104 Carbon Dioxide Cancelled 23 BUN Cancelled 23 Creatinine Cancelled Glucose Calcium 12/22/22 12/22/22 12/22/22 19:23 19:23 19:23 Sodium Potassium Chloride Carbon Dioxide BUN Creatinine 1.0 Glucose Cancelled 147 H Calcium Cancelled 9.0 Liver Function 12/22/22 Range/Units 19:23 Total Bilirubin 0.5 (0.1-1.5) mg/dL Direct Bilirubin 0.1 (0.0-0.5) mg/dL AST 25 (12-35) U/L ALT 26 (4-50) U/L Alkaline Phosphatase 77 (40-150) U/L Albumin 4.3 (3.3-5.0) g/dL ECG Attestation: I personally reviewed and interpreted this ECG as follows: (Normal electrocardiogram. Not substantially changed from 2020) Imaging CT scan - chest: Radiologist's impression: INDICATION: Syncope. Recent surgery. TECHNIQUE : CT scan of the chest. CTA PE protocol.? IV contrast. IV contrast: Isovue 370 95 mL Please note that all CT scans at this facility use dose modulation, iterative reconstruction and/or weight-based dosing when appropriate to reduce radiation dose to as low as reasonably achievable(ALARA). COMPARISON : None. FINDINGS: MEDICAL DIR CT IMAGES: Lungs are grossly clear. Heart and mediastinal contours within normal limits. PULMONARY ARTERIES: No focal pulmonary artery filling defects. THORACIC AORTA: Thoracic aorta is normal in caliber. No dissection. HEART AND MEDIASTINUM: Heart size normal. Calcified coronary artery disease in the LAD. No pathologically enlarged mediastinal lymph nodes. LUNGS AND PLEURA: Calcified granuloma in the left lower lobe. Additional left infrahilar lymph nodes, indicating sequela prior granulomatous disease. No focal airspace consolidation, pleural effusions, or pneumothorax. CHEST WALL AND SOFT TISSUES: Chest wall soft tissues unremarkable. No enlarged axillary lymph nodes. Pacemaker in the anterior left chest wall. THYROID GLAND: Unremarkable. UPPER ABDOMEN: Small hiatal hernia. Splenic calcifications, consistent with prior granulomatous disease. Splenic size is within normal range. Adrenal glands normal. BONES: Unremarkable. IMPRESSION: 1. No acute pulmonary embolism. 2. Lungs clear. 3. Sequela of prior granulomatous disease with calcified left lower lobe pulmonary nodules, calcified left infrahilar lymph nodes, and coarse splenic calcifications. 4. Small hiatal hernia. 5. Calcified coronary artery disease. Assessment and Plan Assessment and plan (1) Syncope: Problem comment: Cause is uncertain. No current evidence for cardiac rhythm disturbance other than his past medical history. Premonitory symptoms of nausea and diaphoresis suggest neurocardiogenic cause. Admit for cardiac monitoring, serial troponin, echo. Status: Acute (2) History of knee surgery: Problem comment: Multiple left knee surgeries following remote history of left patella fracture. 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 [facility] Status: Acute Plan Admit for cardiac monitoring, vital sign monitoring, serial troponin, echocardiogram. Total time spent today is 80 minutes, 50 minutes in coordination of care discussing with patient and other providers ongoing evaluation of syncope.
--- NOTE | 2022-12-22 23:32 | PC.NURSE ---
Arrival 2240- Patient uses the bathroom and voids large amount. Patient is 6'1 and 211 lbs via standing scale. Kayla is main contact at [phone]. Patient denies pain or chest pain. Uses crutches for ambulation.
[2022-12-23] VITALS (7 sets, daily range): BP systolic 107–141; BP diastolic 74–113; PULSE 63–78; RESP 16–20; TEMP 36.4–36.6; O2SAT 95–97
[2022-12-23 05:21] LABS: Appearance Urine Clear (Clear); Bilirubin Urine Negative (Negative); Blood Urine Negative (Negative); Color Urine Yellow (Yellow); Glucose Urine Negative (Negative); Ketones Urine Negative (Negative); Leukocyte Esterase Urine Negative (Negative); Nitrite Urine Negative (Negative); Protein Urine Negative (Negative); Specific Gravity Urine 1.015 (1.000-1.030); Urobilinogen Urine 0.2 (0.2-1.0); pH Urine 6.5 (5.0-8.5)
--- NOTE | 2022-12-23 05:27 | PC.NURSE ---
END OF SHIFT NOTE: PT PLEASANT AND COOPERATIVE. A&Ox4. DENIES CP, SOB, N/V. AMBULATES INDEPENDENTLY WITH CRUTCHES. VSS ON RA; AFEBRILE. CALL LIGHT WITHIN PT?S REACH.?PT REPORTS FEELING BETTER. PT REPORTS DISCOMFORT TO LEFT KNEE D/T RECENT SX. TELE READS NSR WITH 1ST DEGREE HB.
[2022-12-23 05:32] LABS: RBC Urine 0-2 (0-2); Squamous Epithelial Cell Urine Few (None-Few); WBC Urine 0-2 (0-5)
[2022-12-23 06:49] LABS: Basophils Percent Auto 0.9 % (0.0-3.0); Eosinophils Percent Auto 6.4 % (0.0-7.0); Hematocrit 40.3 % (37.0-53.0); Hemoglobin* 13.3 gm/dL (13.5-17.5); Mean Corpuscular HGB Conc 33 gm/dL (32-36); Mean Corpuscular Hemoglobin 28 pg (26-34); Mean Corpuscular Volume 84 fL (80-100); Monocytes Percent Auto 9.4 % (0.0-11.0); Neutrophils Percent Auto 67.3 % (42.0-72.0); Platelet Count* 169 K/uL (140-440); RDW Coefficient of Variation % 14.2 % (11.5-15.5); Red Blood Count 4.81 m/uL (4.30-5.90); White Blood Count* 4.24 K/uL (4.50-11.00)
[2022-12-23 07:04] LABS: Slide Review Reflex No
[2022-12-23 07:59] LABS: Troponin I* < 0.01 ng/mL (0.01-0.04)
[2022-12-23 08:14] LABS: Magnesium* 2.1 mg/dL (1.5-2.6)
--- NOTE | 2022-12-23 13:47 | P.DS_ITS ---
DS: Providers Provider Date Seen: 12/23/22 Date of admission: 12/22/22 22:45 Primary care physician: Israel Alvarado MD Admitting Clinician: Ben Echeverria MD Attending Physician on discharge: Lori Kimbrough MD Date of Discharge: 12/23/22 DS: Diagnosis Discharge Diagnosis (1) Syncope: Status: Acute Problem details: - no recurrence of symptoms during stay - reassuring telemetry, TTE (formal Cardiology read pending), negative troponin - routine f/u with PCP and Cardiology upon discharge (2) History of knee surgery: Status: Acute Problem details: - Remote history of L patellar fx, then multiple surgeries, osteomyelitis with recurrent I and D, prolonged abx, surgery to remove L patella 11/18/2022 @ [facility] DS: Summary Hospital Course Hospital Course: Very pleasant 77 yo male with 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 Isac notes that he had only had coffee to drink prior to his symptoms; queries dehydration as source of symptoms. His telemetry remained reassuring, troponin remained negative, he had no recurrence of symptoms and ambulated without any concerns. TTE completed today; no concerns on initial read, formal cardiology read is pending. Given reassuring findings and asymptomatic status, patient requesting discharge on hospital day 1. Recommend routine follow-up with PCP and Cardiology. Time Spent with Patient Time attestation: Total time spent providing and/or coordinating discharge services: Time spent: Greater than 30 minutes Specific discharge activities: care coordination, results review Exam Narrative: Exam Narrative: GEN: Alert and oriented, answering questions appropriately and appears nontoxic HEENT: EOMIs bilaterally, no scleral icterus CV: RRR, No concerning murmurs, no carotid bruits R: LCTA bilaterally without concerning wheezing, air movement adequate Ext: wwp, no concerning findings over L knee (scar from previous surgery exhibits no s/sx of infection) Neuro: No focal deficits Psych: Appropriate Const: Vital Signs, click to edit/add: Vital Signs - 24 hr 12/22/22 19:34 12/22/22 19:25 12/22/22 19:27 Temperature 96.5 F L Pulse Rate 64 69 Pulse Rate [Pulse Oximeter] Pulse Rate [orthos tatic lying] Pulse Rate [orthos tatic sitting] Pulse Rate [orthos tatic standing] Respiratory Rate 18 Blood Pressure 129/76 115/76 Blood Pressure [Le ft Arm] Blood Pressure [Le ft Upper Arm] 129/76 Blood Pressure [or thostatic lying] Blood Pressure [or thostatic sitting] Blood Pressure [or thostatic standing ] Pulse Oximetry 98 96 98 Oxygen Delivery Me thod Room Air 12/22/22 19:28 12/22/22 19:30 12/22/22 19:32 Temperature Pulse Rate 67 60 60 Pulse Rate [Pulse Oximeter] Pulse Rate [orthos tatic lying] Pulse Rate [orthos tatic sitting] Pulse Rate [orthos tatic standing] Respiratory Rate Blood Pressure 117/77 Blood Pressure [Le ft Arm] Blood Pressure [Le ft Upper Arm] Blood Pressure [or thostatic lying] Blood Pressure [or thostatic sitting] Blood Pressure [or thostatic standing ] Pulse Oximetry 98 98 99 Oxygen Delivery Me thod 12/22/22 19:35 12/22/22 19:37 12/22/22 19:40 Temperature Pulse Rate 58 L 61 58 L Pulse Rate [Pulse Oximeter] Pulse Rate [orthos tatic lying] Pulse Rate [orthos tatic sitting] Pulse Rate [orthos tatic standing] Respiratory Rate Blood Pressure 116/72 Blood Pressure [Le ft Arm] Blood Pressure [Le ft Upper Arm] Blood Pressure [or thostatic lying] Blood Pressure [or thostatic sitting] Blood Pressure [or thostatic standing ] Pulse Oximetry 96 95 98 Oxygen Delivery Me thod 12/22/22 19:42 12/22/22 19:45 12/22/22 19:47 Temperature Pulse Rate 63 62 64 Pulse Rate [Pulse Oximeter] Pulse Rate [orthos tatic lying] Pulse Rate [orthos tatic sitting] Pulse Rate [orthos tatic standing] Respiratory Rate Blood Pressure 119/68 117/74 Blood Pressure [Le ft Arm] Blood Pressure [Le ft Upper Arm] Blood Pressure [or thostatic lying] Blood Pressure [or thostatic sitting] Blood Pressure [or thostatic standing ] Pulse Oximetry 95 96 97 Oxygen Delivery Me thod 12/22/22 19:48 12/22/22 19:50 12/22/22 19:52 Temperature Pulse Rate 59 L 63 61 Pulse Rate [Pulse Oximeter] Pulse Rate [orthos tatic lying] Pulse Rate [orthos tatic sitting] Pulse Rate [orthos tatic standing] Respiratory Rate Blood Pressure 113/77 Blood Pressure [Le ft Arm] Blood Pressure [Le ft Upper Arm] Blood Pressure [or thostatic lying] Blood Pressure [or thostatic sitting] Blood Pressure [or thostatic standing ] Pulse Oximetry 97 98 97 Oxygen Delivery Me thod 12/22/22 19:55 12/22/22 20:00 12/22/22 20:02 Temperature Pulse Rate 63 61 62 Pulse Rate [Pulse Oximeter] Pulse Rate [orthos tatic lying] Pulse Rate [orthos tatic sitting] Pulse Rate [orthos tatic standing] Respiratory Rate Blood Pressure 120/71 Blood Pressure [Le ft Arm] Blood Pressure [Le ft Upper Arm] Blood Pressure [or thostatic lying] Blood Pressure [or thostatic sitting] Blood Pressure [or thostatic standing ] Pulse Oximetry 97 97 96 Oxygen Delivery Nd thod 12/22/22 20:05 12/22/22 20:10 12/22/22 20:46 Temperature Pulse Rate 64 60 Pulse Rate [Pulse Oximeter] Pulse Rate [orthos tatic lying] 67 Pulse Rate [orthos tatic sitting] 75 Pulse Rate [orthos tatic standing] 74 Respiratory Rate Blood Pressure Blood Pressure [Le ft Arm] Blood Pressure [Le ft Upper Arm] Blood Pressure [or thostatic lying] 133/77 Blood Pressure [or thostatic sitting] 134/76 Blood Pressure [or thostatic standing ] 126/77 Pulse Oximetry 96 96 Oxygen Delivery Me thod 12/22/22 20:26 12/22/22 20:30 12/22/22 20:32 Temperature Pulse Rate 64 67 64 Pulse Rate [Pulse Oximeter] Pulse Rate [orthos tatic lying] Pulse Rate [orthos tatic sitting] Pulse Rate [orthos tatic standing] Respiratory Rate Blood Pressure 133/75 Blood Pressure [Le ft Arm] Blood Pressure [Le ft Upper Arm] Blood Pressure [or thostatic lying] Blood Pressure [or thostatic sitting] Blood Pressure [or thostatic standing ] Pulse Oximetry 98 97 97 Oxygen Delivery Nd thod 12/22/22 20:40 12/22/22 20:41 12/22/22 20:44 Temperature Pulse Rate 75 62 70 Pulse Rate [Pulse Oximeter] Pulse Rate [orthos tatic lying] Pulse Rate [orthos tatic sitting] Pulse Rate [orthos tatic standing] Respiratory Rate Blood Pressure 133/77 134/76 126/77 Blood Pressure [Le ft Arm] Blood Pressure [Le ft Upper Arm] Blood Pressure [or thostatic lying] Blood Pressure [or thostatic sitting] Blood Pressure [or thostatic standing ] Pulse Oximetry 99 98 93 Oxygen Delivery Nd thod 12/22/22 20:45 12/22/22 20:47 12/22/22 21:00 Temperature Pulse Rate 68 69 66 Pulse Rate [Pulse Oximeter] Pulse Rate [orthos tatic lying] Pulse Rate [orthos tatic sitting] Pulse Rate [orthos tatic standing] Respiratory Rate Blood Pressure 136/81 Blood Pressure [Le ft Arm] Blood Pressure [Le ft Upper Arm] Blood Pressure [or thostatic lying] Blood Pressure [or thostatic sitting] Blood Pressure [or thostatic standing ] Pulse Oximetry 98 99 [facility]02 12/22/22 21:15 12/22/22 21:17 Temperature Pulse Rate 65 66 66 Pulse Rate [Pulse Oximeter] Pulse Rate [orthos tatic lying] Pulse Rate [orthos tatic sitting] Pulse Rate [orthos tatic standing] Respiratory Rate Blood Pressure 127/69 132/74 Blood Pressure [Le ft Arm] Blood Pressure [Le ft Upper Arm] Blood Pressure [or thostatic lying] Blood Pressure [or thostatic sitting] Blood Pressure [or thostatic standing ] Pulse Oximetry 97 96 97 [facility]/22 21:18 12/22/22 21:30 12/22/22 21:32 Temperature Pulse Rate 67 67 68 Pulse Rate [Pulse Oximeter] Pulse Rate [orthos tatic lying] Pulse Rate [orthos tatic sitting] Pulse Rate [orthos tatic standing] Respiratory Rate Blood Pressure 120/76 Blood Pressure [Le ft Arm] Blood Pressure [Le ft Upper Arm] Blood Pressure [or thostatic lying] Blood Pressure [or thostatic sitting] Blood Pressure [or thostatic standing ] Pulse Oximetry 97 97 96 [facility]/22 21:45 12/22/22 21:47 12/22/22 21:48 Temperature Pulse Rate 69 75 70 Pulse Rate [Pulse Oximeter] Pulse Rate [orthos tatic lying] Pulse Rate [orthos tatic sitting] Pulse Rate [orthos tatic standing] Respiratory Rate Blood Pressure 125/71 Blood Pressure [Le ft Arm] Blood Pressure [Le ft Upper Arm] Blood Pressure [or thostatic lying] Blood Pressure [or thostatic sitting] Blood Pressure [or thostatic standing ] Pulse Oximetry 98 97 97 Oxygen Delivery Me thod 12/22/22 22:00 12/22/22 22:02 12/22/22 22:15 Temperature Pulse Rate 72 67 74 Pulse Rate [Pulse Oximeter] Pulse Rate [orthos tatic lying] Pulse Rate [orthos tatic sitting] Pulse Rate [orthos tatic standing] Respiratory Rate Blood Pressure 132/70 Blood Pressure [Le ft Arm] Blood Pressure [Le ft Upper Arm] Blood Pressure [or thostatic lying] Blood Pressure [or thostatic sitting] Blood Pressure [or thostatic standing ] Pulse Oximetry 98 98 98 Oxygen Delivery Nd thod 12/22/22 22:17 12/23/22 00:30 12/23/22 00:30 Temperature 97.9 F Pulse Rate 74 73 Pulse Rate [Pulse Oximeter] 78 Pulse Rate [orthos tatic lying] Pulse Rate [orthos tatic sitting] Pulse Rate [orthos tatic standing] Respiratory Rate 20 Blood Pressure 135/113 H Blood Pressure [Le ft Arm] 111/74 Blood Pressure [Le ft Upper Arm] Blood Pressure [or thostatic lying] Blood Pressure [or thostatic sitting] Blood Pressure [or thostatic standing ] Pulse Oximetry 98 97 Oxygen Delivery Nd thod Room Air 12/22/22 23:31 12/22/22 23:31 12/23/22 05:00 Temperature 97.9 F 97.5 F L Pulse Rate Pulse Rate [Pulse Oximeter] 78 64 Pulse Rate [orthos tatic lying] Pulse Rate [orthos tatic sitting] Pulse Rate [orthos tatic standing] Respiratory Rate 20 20 18 Blood Pressure Blood Pressure [Le ft Arm] 111/74 129/77 Blood Pressure [Le ft Upper Arm] Blood Pressure [or thostatic lying] Blood Pressure [or thostatic sitting] Blood Pressure [or thostatic standing ] Pulse Oximetry 97 97 96 Oxygen Delivery Nd thod Room Air Room Air Room Air 12/23/22 05:22 12/23/22 08:35 12/23/22 10:00 Temperature 97.6 F Pulse Rate 63 Pulse Rate [Pulse Oximeter] 64 Pulse Rate [orthos tatic lying] 64 Pulse Rate [orthos tatic sitting] 71 Pulse Rate [orthos tatic standing] 78 Respiratory Rate 16 Blood Pressure Blood Pressure [Le ft Arm] 132/97 H Blood Pressure [Le ft Upper Arm] Blood Pressure [or thostatic lying] 129/77 Blood Pressure [or thostatic sitting] 141/90 H Blood Pressure [or thostatic standing ] 107/81 Pulse Oximetry 95 Oxygen Delivery Me thod Room Air 12/23/22 12:45 Temperature Pulse Rate Pulse Rate [Pulse Oximeter] 63 Pulse Rate [orthos tatic lying] Pulse Rate [orthos tatic sitting] Pulse Rate [orthos tatic standing] Respiratory Rate 16 Blood Pressure Blood Pressure [Le ft Arm] 131/76 Blood Pressure [Le ft Upper Arm] Blood Pressure [or thostatic lying] Blood Pressure [or thostatic sitting] Blood Pressure [or thostatic standing ] Pulse Oximetry 97 Oxygen Delivery Me thod Room Air DS: Data Data Completed and Pending Labs on day of discharge: Labs from last 24 hours 12/23/22 12/23/22 12/22/22 06:20 05:09 21:38 WBC 4.24 L RBC 4.81 Hgb 13.3 L Hct 40.3 MCV 84 MCH 28 MCHC 33 RDW Coeff of Yareli 14.2 Plt Count 169 Neut % (Auto) 67.3 Lymph % (Auto) 16.0 L [place] % (Auto) 9.4 Eos % (Auto) 6.4 Baso % (Auto) 0.9 Neut # (Auto) 2.90 Lymph # (Auto) 0.70 L [place] # (Auto) 0.40 Eos # (Auto) 0.30 Baso # (Auto) 0.00 D-Dimer Quant (PE/DVT) Sodium Potassium Chloride Carbon Dioxide BUN Creatinine Estimated Creat Clear Estimated GFR Glucose Lactate Calcium Magnesium 2.1 Total Bilirubin Direct Bilirubin AST ALT Alkaline Phosphatase Troponin I < 0.01 L Total Protein Albumin Lipase Urine Color Yellow Urine Appearance Clear Urine pH 6.5 Ur Specific [place] 1.015 Urine Protein Negative Urine Glucose (UA) Negative Urine Ketones Negative Urine Blood Negative Urine Nitrite Negative Urine Bilirubin Negative Urine Urobilinogen 0.2 Ur Leukocyte Esterase Negative Urine RBC 0-2 Urine WBC 0-2 Ur Squamous Epith Cells Few Urine Bacteria None SARS-CoV-2 (PCR) POC Troponin I 0.02 12/22/22 12/22/22 12/22/22 20:47 19:25 19:23 WBC RBC Hgb Hct MCV MCH MCHC RDW Coeff of Yareli Plt Count Neut % (Auto) Lymph % (Auto) [place] % (Auto) Eos % (Auto) Baso % (Auto) Neut # (Auto) Lymph # (Auto) [place] # (Auto) Eos # (Auto) Baso # (Auto) D-Dimer Quant (PE/DVT) Sodium Potassium Chloride Carbon Dioxide BUN Creatinine Estimated Creat Clear Estimated GFR Glucose Lactate Calcium 9.0 Magnesium Total Bilirubin 0.5 Direct Bilirubin 0.1 AST 25 ALT 26 Alkaline Phosphatase 77 Troponin I Total Protein 7.3 Albumin 4.3 Lipase 60 Urine Color Urine Appearance Urine pH Ur Specific [place] Urine Protein Urine Glucose (UA) Urine Ketones Urine Blood Urine Nitrite Urine Bilirubin Urine Urobilinogen Ur Leukocyte Esterase Urine RBC Urine WBC Ur Squamous Epith Cells Urine Bacteria SARS-CoV-2 (PCR) Negative SARS-CoV-2 POC Troponin I 0.01 12/22/22 12/22/22 12/22/22 19:23 19:23 19:23 WBC RBC Hgb Hct MCV MCH MCHC RDW Coeff of Yareli Plt Count Neut % (Auto) Lymph % (Auto) [place] % (Auto) Eos % (Auto) Baso % (Auto) Neut # (Auto) Lymph # (Auto) [place] # (Auto) Eos # (Auto) Baso # (Auto) D-Dimer Quant (PE/DVT) Sodium Potassium Chloride Carbon Dioxide BUN Creatinine Estimated Creat Clear 71.02 Estimated GFR 78 Cancelled Glucose 147 H Cancelled Lactate 1.2 Calcium Cancelled Magnesium Total Bilirubin Direct Bilirubin AST ALT Alkaline Phosphatase Troponin I Total Protein Albumin Lipase Urine Color Urine Appearance Urine pH Ur Specific [place] Urine Protein Urine Glucose (UA) Urine Ketones Urine Blood Urine Nitrite Urine Bilirubin Urine Urobilinogen Ur Leukocyte Esterase Urine RBC Urine WBC Ur Squamous Epith Cells Urine Bacteria SARS-CoV-2 (PCR) POC Troponin I 12/22/22 12/22/22 12/22/22 19:23 19:23 19:23 WBC RBC Hgb Hct MCV MCH MCHC RDW Coeff of Yareli Plt Count Neut % (Auto) Lymph % (Auto) [place] % (Auto) Eos % (Auto) Baso % (Auto) Neut # (Auto) Lymph # (Auto) [place] # (Auto) Eos # (Auto) Baso # (Auto) D-Dimer Quant (PE/DVT) Sodium Potassium Chloride Carbon Dioxide 23 BUN 23 Cancelled Creatinine 1.0 Cancelled Estimated Creat Clear Cancelled Estimated GFR Glucose Lactate Calcium Magnesium Total Bilirubin Direct Bilirubin AST ALT Alkaline Phosphatase Troponin I Total Protein Albumin Lipase Urine Color Urine Appearance Urine pH Ur Specific [place] Urine Protein Urine Glucose (UA) Urine Ketones Urine Blood Urine Nitrite Urine Bilirubin Urine Urobilinogen Ur Leukocyte Esterase Urine RBC Urine WBC Ur Squamous Epith Cells Urine Bacteria SARS-CoV-2 (PCR) POC Troponin I 12/22/22 12/22/22 12/22/22 19:23 19:23 19:23 WBC RBC Hgb Hct MCV MCH MCHC RDW Coeff of Yareli Plt Count Neut % (Auto) Lymph % (Auto) [place] % (Auto) Eos % (Auto) Baso % (Auto) Neut # (Auto) Lymph # (Auto) [place] # (Auto) Eos # (Auto) Baso # (Auto) D-Dimer Quant (PE/DVT) Sodium 136 Potassium 3.9 Cancelled Chloride 104 Cancelled Carbon Dioxide Cancelled BUN Creatinine Estimated Creat Clear Estimated GFR Glucose Lactate Calcium Magnesium Total Bilirubin Direct Bilirubin AST ALT Alkaline Phosphatase Troponin I Total Protein Albumin Lipase Urine Color Urine Appearance Urine pH Ur Specific [place] Urine Protein Urine Glucose (UA) Urine Ketones Urine Blood Urine Nitrite Urine Bilirubin Urine Urobilinogen Ur Leukocyte Esterase Urine RBC Urine WBC Ur Squamous Epith Cells Urine Bacteria SARS-CoV-2 (PCR) POC Troponin I 12/22/22 19:23 WBC 5.81 RBC 5.19 Hgb 14.3 Hct 43.1 MCV 83 MCH 28 MCHC 33 RDW Coeff of Yareli 13.9 Plt Count 183 Neut % (Auto) 56.1 Lymph % (Auto) 26.5 [place] % (Auto) 8.6 Eos % (Auto) 7.9 H Baso % (Auto) 0.9 Neut # (Auto) 3.26 Lymph # (Auto) 1.54 [place] # (Auto) 0.50 Eos # (Auto) 0.50 Baso # (Auto) 0.05 D-Dimer Quant (PE/DVT) 0.89 H Sodium Cancelled Potassium Chloride Carbon Dioxide BUN Creatinine Estimated Creat Clear Estimated GFR Glucose Lactate Calcium Magnesium Total Bilirubin Direct Bilirubin AST ALT Alkaline Phosphatase Troponin I Total Protein Albumin Lipase Urine Color Urine Appearance Urine pH Ur Specific [place] Urine Protein Urine Glucose (UA) Urine Ketones Urine Blood Urine Nitrite Urine Bilirubin Urine Urobilinogen Ur Leukocyte Esterase Urine RBC Urine WBC Ur Squamous Epith Cells Urine Bacteria SARS-CoV-2 (PCR) POC Troponin I Discharge Plan Discharge Disposition: Home, Self-Care Date of Admission: 12/22/22 22:45 Attending Provider on Discharge: Lori Kimbrough Primary Care Provider: Israel Alvarado Condition: Improved Anticipated Discharge Date/Time: 12/23/22 13:45 Discharge Medications: No Action No Known Home Medications Discharge Orders: Discharge Order (Routine); Ordered 12/23/22 Ordered By: Lori Kimbrough Patient Education: Syncope (DC) Additional Instructions: Routine f/u with PCP and Cardiology - return to ED with any recurrent syncope, palpitations, or other concerns. Activity Level: Activity as Tolerated Discharge Diet: Regular Follow Up Appointments: Israel Alvarado MD [Primary Care Provider] - (See one of Jenny's partners (he's out of office until April) in 7-10 days for hospital f/u) Forms: [employer] [facility] Info Instructions
--- NOTE | 2022-12-23 16:11 | PC.NURSE ---
T.S. 77 M Syncope Pt completed ECHO with no significant findings. Ambulating with SBA and crutches from home (recent knee surgery). DCed home via wheelchair with daughter. IV removed and site reinforced after removal and minor leakage. Pt had no changes in medication and had no questions regarding discharge paperwork. Layo Griffiths 12/23/2022
== END 2022-12-23 14:34 | disposition home or self-care (01) ==
LOC: ED 22:13 → MEDSURG 22:47
PROVIDERS: Admitting Provider Family Medicine; Emergency Provider Family Medicine; PCP Surgery; Visit Provider Family Medicine
DX: R55 Syncope and collapse (principal); Z98.890 Other specified postprocedural states; I95.9 Hypotension, unspecified; R79.89 Other specified abnormal findings of blood chemistry; R00.1 Bradycardia, unspecified; R61 Generalized hyperhidrosis; R73.02 Impaired glucose tolerance (oral); K44.9 Diaphragmatic hernia without obstruction or gangrene; R11.0 Nausea; R42 Dizziness and giddiness; Z86.79 Personal history of other diseases of the circulatory system; Z86.16 Personal history of COVID-19; Z87.19 Personal history of other diseases of the digestive system; Z95.0 Presence of cardiac pacemaker; Z98.52 Vasectomy status
CPT/HCPCS: 36415; 71260; 80048; 80076; 81001; 83605; 83690; 83735; 84484; 85025; 85379; 87635; 93005; 93306; 99285; G0378; J7030; Q9967